=== PATIENT | female | born 1955 | race African-American/Black ===

== ENCOUNTER 2020-03-14 09:24 | Emergency (ER) | payer MEDICARE, MEDICAID ==
[~2020-03-14] VITALS: Ht 157.5 cm; Wt 77.0 kg
[2020-03-14 09:26] VITALS: BP 178/99
[2020-03-14] MEDS ORDERED: NAPROXEN 375MG TABLET PO ONE (10:30)
[2020-03-14] MEDS ORDERED: IBUPROFEN 400MG TABLET PO ONE (10:45)
== END 2020-03-14 10:45 | disposition home or self-care (01) ==
LOC: ER 09:24
DX: H92.02 Otalgia, left ear (principal); I10 Essential (primary) hypertension; E11.9 Type 2 diabetes mellitus without complications; E78.00 Pure hypercholesterolemia, unspecified; I35.1 Nonrheumatic aortic (valve) insufficiency
CPT/HCPCS: 99282

== ENCOUNTER 2021-03-09 12:50 | Emergency (ER) | payer MEDICARE, MEDICAID ==
[~2021-03-09] VITALS: Ht 157.5 cm; Wt 82.0 kg
[2021-03-09 13:34] LABS: BASOPHILS % 0.7 % (0.0-2.0); EOSINOPHILS % 2.1 % (0.0-5.0); HEMATOCRIT. 38.6 % (36.0-48.0); HEMOGLOBIN. 13.2 g/dL (12.0-16.0); LYMPHOCYTES % 26.9 % (20.0-50.0); MEAN CORPUSCULAR HEMOGLOBIN 28.9 pg (28.0-32.0); MEAN CORPUSCULAR VOLUME 84.8 fL (81.0-99.0); MEAN PLATELET VOLUME 8.3 fl (7.4-10.4); MONOCYTES % 8.3 % (2.0-8.0); PLATELET 236 x1000/uL (130-400); RED BLOOD CELL COUNT 4.55 mill/uL (4.2-5.4); RED CELL DISTRIBUTION WIDTH 14.6 % (11.6-14.6)
[2021-03-09 13:42] LABS: CHLORIDE 109 mEq/L (98-107)
[2021-03-09] MEDS ORDERED: ACETAMINOPHEN 325MG TABLET PO ONE (13:45)
[2021-03-09 16:07] VITALS: BP 171/98
== END 2021-03-09 16:08 | disposition home or self-care (01) ==
LOC: ER 12:50
DX: M21.612 Bunion of left foot (principal); R07.89 Other chest pain; I10 Essential (primary) hypertension; E11.9 Type 2 diabetes mellitus without complications; E78.00 Pure hypercholesterolemia, unspecified
CPT/HCPCS: 36415; 71045; 73620; 80053; 83880; 84484; 85025; 93005; 99285

== ENCOUNTER 2021-07-26 11:29 | Emergency (ER) | payer MEDICARE, MEDICAID ==
[~2021-07-26] VITALS: Ht 157.5 cm; Wt 82.0 kg
[2021-07-26] MEDS ORDERED: ACETAMINOPHEN 325MG TABLET PO STA (14:18)
[2021-07-26 14:44] LABS: BASOPHILS % 1.1 % (0.0-2.0); EOSINOPHILS % 2.1 % (0.0-5.0); HEMATOCRIT. 41.2 % (36.0-48.0); HEMOGLOBIN. 13.6 g/dL (12.0-16.0); LYMPHOCYTES % 27.4 % (20.0-50.0); MEAN CORPUSCULAR HEMOGLOBIN 28.7 pg (28.0-32.0); MEAN CORPUSCULAR VOLUME 87.2 fL (81.0-99.0); MEAN PLATELET VOLUME 8.8 fl (7.4-10.4); MONOCYTES % 10.1 % (2.0-8.0); NEUTROPHILS % 59.3 % (40.0-76.0); PLATELET 242 x1000/uL (130-400); RED BLOOD CELL COUNT 4.73 mill/uL (4.2-5.4); RED CELL DISTRIBUTION WIDTH 15.1 % (11.6-14.6)
[2021-07-26 14:52] LABS: CHLORIDE 105 mEq/L (98-107)
[2021-07-26 16:00] VITALS: BP 151/87
[2021-07-26] MEDS ORDERED: DEXAMETHASONE 4MG TABLET PO ONE (16:00)
[2021-07-26] MEDS ORDERED: ACET-2708 MT (16:20)
== END 2021-07-26 16:38 | disposition home or self-care (01) ==
LOC: ER 11:29
DX: J06.9 Acute upper respiratory infection, unspecified (principal); I10 Essential (primary) hypertension; E78.00 Pure hypercholesterolemia, unspecified; E11.9 Type 2 diabetes mellitus without complications; Z98.890 Other specified postprocedural states; Z20.822 Contact with and (suspected) exposure to COVID-19
CPT/HCPCS: 36415; 71045; 80053; 84484; 85025; 87426; 93005; 99285; J8540

== ENCOUNTER 2022-09-21 22:15 | Emergency (ER) | payer MEDICARE, MEDICAID ==
[~2022-09-21] VITALS: Ht 157.5 cm; Wt 88.0 kg
[~2022-09-21 22:15] MED LIST: ACET-2708 MT
[2022-09-22] MEDS ORDERED: ASPIRIN 81MG TABLET PO ONE (01:30)
[2022-09-22] MEDS: NITROGLYCERIN 0.4MG TABLET SL SL PRN ×2 (02:08→02:13)
[2022-09-22 02:29] LABS: BASOPHILS % 0.5 % (0.0-2.0); EOSINOPHILS % 5.9 % (0.0-5.0); HEMOGLOBIN. 12.7 g/dL (12.0-16.0); LYMPHOCYTES % 31.3 % (20.0-50.0); MEAN CORPUSCULAR VOLUME 86.4 fL (81.0-99.0); MONOCYTES % 12.8 % (2.0-8.0); NEUTROPHILS % 49.5 % (40.0-76.0); PLATELET 215 x1000/uL (130-400); RED CELL DISTRIBUTION WIDTH 15.3 % (11.6-14.6)
[2022-09-22 02:38] LABS: CHLORIDE 107 mEq/L (98-107)
[2022-09-22 04:15] VITALS: BP 125/83
[2022-09-22] MEDS ORDERED: ALBU90AE INH (04:22)
== END 2022-09-22 04:30 | disposition home or self-care (01) ==
LOC: ER 22:38
DX: R07.89 Other chest pain (principal); Z20.822 Contact with and (suspected) exposure to COVID-19
CPT/HCPCS: 36415; 71045; 80053; 83605; 83880; 84145; 84484; 85025; 87426; 93005; 99285

== ENCOUNTER 2022-10-25 11:39 | Emergency (ER) | payer MEDICARE, MEDICAID ==
[~2022-10-25] VITALS: Ht 157.5 cm; Wt 82.0 kg
[~2022-10-25 11:39] MED LIST changes: +ALBU90AE INH
[2022-10-25 11:54] VITALS: BP 131/80
[2022-10-25] MEDS ORDERED: IBUPROFEN 400MG TABLET PO ONE (13:30)
== END 2022-10-25 15:40 | disposition home or self-care (01) ==
LOC: ER 12:59
DX: S52.591A Other fractures of lower end of right radius, initial encounter for closed fracture (principal); S52.611A Displaced fracture of right ulna styloid process, initial encounter for closed fracture; W01.0XXA Fall on same level from slipping, tripping and stumbling without subsequent striking against object, initial encounter; Y93.89 Activity, other specified; Y92.480 Sidewalk as the place of occurrence of the external cause; I10 Essential (primary) hypertension
CPT/HCPCS: 29125; 73110; 73130; 99284; A4565

== ENCOUNTER 2025-10-08 16:10 | Emergency (ER) | payer MEDICARE, MEDICAID ==
[~2025-10-08] VITALS: Ht 167.6 cm; Wt 91.0 kg
[~2025-10-08 16:10] MED LIST changes: +ALLO300T2 PO; +AMLO10TA80 PO; +ATOR20TA65 PO; +LEVO-65 MT; +WARF-53 PO
[2025-10-08 16:13] VITALS: O2SAT 98
[2025-10-08 16:25] VITALS: BP 125/80; PULSE 91; RESP 16; TEMP 36.7; O2SAT 99
[2025-10-08] MEDS: ACETAMINOPHEN 325MG TABLET PO ONE (19:36)
[2025-10-08] MEDS: FAMOTIDINE 20MG TABLET PO ONE (19:36)
[2025-10-08] MEDS: VISCOUS LIDOCAINE 2% 15 ML UDC MM ONE (19:36)
[2025-10-08] MEDS ORDERED: FAMO20TA8 MT (20:44)
== END 2025-10-08 20:53 | disposition home or self-care (01) ==
LOC: ER 16:10
DX: K21.9 Gastro-esophageal reflux disease without esophagitis (principal); R68.84 Jaw pain; R07.0 Pain in throat; E78.00 Pure hypercholesterolemia, unspecified; I10 Essential (primary) hypertension; Z79.899 Other long term (current) drug therapy; Z98.890 Other specified postprocedural states
CPT/HCPCS: 99284